=== PATIENT | male | born 1980 | race Caucasian/White ===

== ENCOUNTER 2018-05-12 08:43 | Emergency (ER) | payer BC ==
--- NOTE | 2018-05-12 09:10 | Emergency Department Record ---
History of Present Illness - General Chief Complaint: Laceration(s) Stated Complaint: LAC L HAND Time Seen by Provider: 05/12/18 08:53 Source: Patient Mode of Arrival: Ambulatory Limitations: No limitations - History of Present Illness Initial Commments: The patient cut his L hand on a strap in his barn last night about 12 hours ago. He is now having significant pain in the hand. He denies any numbness or tingling to the thumb. The patient's Td is not UTD. Onset/Timin -: Days(s) Place: Home Context: Accidental Associated Symptoms: None Treatments Prior to Arrival: Bandage - Ruddy Coma Scale Eye Response: (4) Open spontaneously Motor Response: (6) Obeys commands Verbal Response: (5) Oriented [place] Total: 15 - Related Data Hx Tetanus Toxoid Vaccination: No Patient Tetanus UTD (within 5 yrs): No Previous Rx's Medication Instructions Recorded Cephalexin [Keflex] 500 mg PO QID #20 cap 05/12/18 Allergies Allergy/AdvReac Type Severity Reaction Status Date / Time No Known Drug Allergies Allergy Verified 05/12/18 08:51 Travel Screening - Travel/Exposure Within Last 30 Days Have you traveled within the last 30 days?: No Review of Systems Constitutional: Denies: Chills, Fever Past Medical History - SOCIAL HISTORY Smoking Status: Never smoker Alcohol Use: None Drug Use: None - RESPIRATORY Hx Respiratory Disorders: No - CARDIOVASCULAR Hx Cardio Disorders: No - NEURO Hx Neuro Disorders: No - GI Hx GI Disorders: No - Hx Genitourinary Disorders: No - ENDOCRINE Hx Endocrine Disorders: No - MUSCULOSKELETAL Hx Musculoskeletal Disorders: No - PSYCH Hx Psych Problems: No - HEMATOLOGY/ONCOLOGY Hx Hematology/Oncology Disorders: No Family Medical History Any Significant Family History?: No Physical Exam - General General Appearance: Alert, Cooperative, No acute distress - Head Head exam: Atraumatic, Normocephalic - Eye Eye exam: Normal appearance, PERRL - Extremities Extremities exam: Full ROM, Normal capillary refill, Tenderness (There is tenderness around the 1st MCP joint.), Other (The L hand and thumb have normal tendon and nerve funcion with no decrease in sensation.). negative: Normal inspection (There is a 1.5 cm lac to the base of the L thumb palmar surface. The L thumb is NVI with normal tendon function.), Joint swelling Image of Hand: 1 - 1.5 cm lac - Neurological Neurological exam: Alert. negative: Motor sensory deficit Course Vital Signs 05/12/18 08:47 Temperature 98.2 F Pulse Rate 62 Respiratory 20 Rate Blood Pressure 137/82 Pulse Ox 99 - Reevaluation(s) Reevaluation #1: Procedure note: The L hand lac was anesth. with 1.5 cc's Sensoricaine. The wound was minimally debrided and lavaged with sterile saline. The wound was not down to the tendon and no FB's were found. The lac was not sutured due to the age of the wound. 05/12/18 09:43 Reevaluation #2: I did discuss the need to F/U with his PCP on Monday or return to the ER for recheck and possible suturing. He is to keep the hand clean and dry until then. 05/12/18 09:55 Medical Decision Making - Data Complexity MDM Data: X-Ray Ordered and/or Reviewed - Radiology Data Radiology results: Report reviewed (L hand: Neg for fx or FB.) Disposition Disposition: Discharge Clinical Impression: Laceration of hand Qualifiers: Encounter type: initial encounter Foreign body presence: without foreign body Laterality: left Qualified Code(s): S61.412A - Laceration without foreign body of left hand, initial encounter Disposition: Home, Self-Care Condition: (2) Stable Instructions: Laceration (ED) Additional Instructions: Please keep the wound clean and dry. Please have the wound rechecked on Monday with either your PCP or an ER for possible suturing. Return sooner for any signs of infection. Take the Keflex as directed and use Tylenol or Motrin for pain. Prescriptions: Cephalexin [Keflex] 500 mg PO QID #20 cap Forms: Patient Portal Access Time of Disposition: 09:57 Quality - Quality Measures Quality Measures: N/A - Blood Pressure Screening View Details: Yes Does Patient Have Any of the Following: No Blood Pressure Classification: Pre-Hypertensive BP Reading Systolic Measurement: 137 Diastolic Measurement: 82 Screening for High Blood Pressure: < Pre-Hypertensive BP, F/U Documented > [ [id number]] Pre-Hypertensive Follow-up Interventions: Referral to alternative/primary care provider.
[2018-05-12] MEDS: Diph,Pert(Acell),Tet Vac 0.5 ML SYR IM ONE (09:24)
[2018-05-12] MEDS: CEPHALEXIN 500 MG CAPSULE PO STA (09:25)
--- NOTE | 2018-05-14 09:47 | RADIOLOGY REPORT ---
EXAM: LEFT HAND HISTORY: LACERATION FROM A METAL TOOL. PAIN ALONG THE PROXIMAL THUMB. TECHNIQUE: Three views of the left hand were obtained. Comparison: None. Encounter: Initial. FINDINGS: The bones and joints are intact. There is no acute fracture or dislocation. There is no radiopaque foreign body. IMPRESSION: NO FRACTURE OR FOREIGN BODY. JOB NUMBER: [id number] MTDD
== END 2018-05-12 10:04 | disposition home or self-care (01) ==
LOC: ER 08:43
DX: S61.012A Laceration without foreign body of left thumb without damage to nail, initial encounter (principal); Y93.9 Activity, unspecified; Y92.71 Barn as the place of occurrence of the external cause
CPT/HCPCS: 90715; 96372; 99283